=== PATIENT | female | born 1955 | race Caucasian/White ===

== ENCOUNTER 2018-03-17 10:18 | Observation (INO) | payer BC ==
[2018-03-17 10:34] VITALS: BMI 28.7
[2018-03-17] MEDS ORDERED: SODIUM CHLORIDE 1,000 ML IV ONE (10:44)
--- NOTE | 2018-03-17 10:50 | PDOC ---
History of Present Illness - General Chief Complaint: Pain Stated Complaint: ABDOMINAL PAIN Time Seen by Provider: 03/17/18 10:41 History Source: Patient Exam Limitations: No Limitations - History of Present Illness Travel History: No Initial Comments: 03/17/18 11:05 62y F hx of anxiety presents with abdoimnal pain and diarrhea. pt notes that she has been having frequent bowel stool for the past month. pt notes that she has beenhaving yellowish diarrhea, she was started on flagyl originally with mild improvement of her symptoms but never resolved completely. symptoms worsened again, pt went to PMDs office and received a CT abd as an outpatient showing diffuse colitis. Pt was referred to the ED as she is still having frequent stools and abd pain. pt denies any recent travel (last travel was to [place] last jun). no associated fever/chills, n/v, cp, sob, palpitations , back pain, melena. Pt does not occasionaly spotting in her toilet paper when wiping bu tno bloody stool or black stool. pt was started on levaquin yesterday, last dose was this morning. Past History - Past Medical History Allergies/Adverse Reactions: Allergies Allergy/AdvReac Type Severity Reaction Status Date / Time No Known Allergies Allergy Verified 03/17/18 10:30 COPD: No GI Disorders: Yes (COLITIS) Psychiatric Problems: Yes (ANXEITY) - Suicide/Smoking/Psychosocial Hx Smoking History: Current every day smoker Have you smoked in the past 12 months: Yes Number of Cigarettes Smoked Daily: 10 Information on smoking cessation initiated: Yes 'Breaking Loose' booklet given: 03/17/18 Hx Alcohol Use: No Drug/Substance Use Hx: No Substance Use Type: None Review of Systems - Review of Systems Able to Perform ROS?: Yes Comments:: 03/17/18 11:12 Constitutional - no reported Fever, Chills, HEENT: no reported vision changes, sore throat Respiratory: no reported cough, sob, hemoptysis Cardiac: no reported chest pain, palpitations, light headedness, leg swelling Abd/GI: +abd pain, diarrhea no reported nausea, vomiting, blood per rectum, melena : no reported dysuria, frequency, discharge Musculskelatal - no reported back pain, joint swelling skin - no reported bruising, erythema, rash neurological: no reported headache, numbness, focal weakness, tingling, ataxia, hematologic: no reported easy bruising, easy bleeding *Physical Exam - Vital Signs Last Vital Signs Temp Pulse Resp BP Pulse Ox 97.5 F L 127 H 18 90/66 100 03/17/18 10:31 03/17/18 10:31 03/17/18 10:31 03/17/18 10:31 03/17/18 10:31 - Physical Exam Comments: 03/17/18 11:13 GENERAL: The patient is awake, alert, and fully oriented, Nontoxic - in no acute distress. HEAD: Normocephalic, atraumatic. EYES: extraocular movements intact, sclera anicteric, conjunctiva clear. ENT: Normal voice, Moist mucous membranes. NECK: Normal range of motion, supple LUNGS: Breath sounds equal, clear to auscultation bilaterally. No wheezes, no rhonchi, no rales. HEART: tachycardic, normal S1 and S2 without murmur, rub or gallop. ABDOMEN: mild diffuse tenderness, no rebound/guarding, EXTREMITIES: Normal range of motion, no edema. No clubbing or cyanosis. No cords, erythema, or tenderness. NEUROLOGICAL: No facial assymetry, Normal speech, PSYCH: Normal mood, normal affect. SKIN: Warm, Dry, normal turgor, Heart Score/ECG Review - ECG Impressions Comment:: 03/17/18 13:55 Twelve-lead EKG was performed and reviewed by me. There is normal sinus rhythm with rate of 107 nonspecific t wave chnages ED Treatment Course - LABORATORY CBC & Chemistry Diagram: 03/17/18 11:40 03/17/18 11:40 - RADIOLOGY Radiology Studies Ordered: Category Date Time Status CHEST X-RAY PORTABLE* [RAD] Stat Radiology 03/17/18 10:44 Ordered Medical Decision Making - Medical Decision Making 03/17/18 11:13 62y F presents with complaint of diarrhea, colitis on outpatietn CT yesterday presents with persitent diarrhea, noted to be tachy to 127 at triage. abd soft, but mild diffuse tendrness supect tachy due to dehydration, posisble metabolic derangement fluid resusitation ekg to screen for arrythmia pt had levaquin this AM, will add flagyl will obtain stool cultures, o&p, cdiff anticiapate admission for further magnement 03/17/18 13:[address] angeles calderon with obs pts wbc noted to be 23, and pancolitis on CT [place] high suspicion for cdiff will give po vanc Case discussed in detail with admitting physician including history, physical exam and ancillary studies. Admitting physician has assumed care for the patient, will follow all pending diagnostics and will complete the evaluation and treatment. *DC/Admit/Observation/Transfer Diagnosis at time of Disposition: Pancolitis, Clostridium difficile colitis - Discharge Dispostion Condition at time of disposition: Stable Decision to Admit order: Yes - Referrals - Patient Instructions - Post Discharge Activity
[2018-03-17 12:10] LABS: BASO % 0.1 % (0-2.0); EOS % 0.1 % (0-4.5); HEMATOCRIT 42.1 % (32.4-45.2); HEMOGLOBIN 13.7 GM/dL (10.7-15.3); LYMPH % 3.8 % (8-40); MCH 27.8 pg (25.7-33.7); MCHC 32.5 g/dl (32.0-36.0); MEAN CELL VOLUME 85.5 fl (80-96); MEAN PLT VOLUME 8.6 fl (7.5-11.1); MONO % 7.9 % (3.8-10.2); NEUT % 88.1 % (42.8-82.8); PLATELET COUNT 369 K/MM3 (134-434); RBC 4.93 M/mm3 (3.60-5.2); WHITE BLOOD COUNT 23.4 K/mm3 (4.0-10.0)
[2018-03-17 12:48] LABS: ALBUMIN 2.6 g/dl (3.4-5.0); ALK PHOS 108 U/L (45-117); ANION GAP 9 (8-16); BILIRUBIN,TOTAL 0.7 mg/dL (0.2-1.0); BLOOD UREA NITROGEN 13 mg/dL (7-18); CALCIUM 8.5 mg/dL (8.5-10.1); CHLORIDE 94 mmol/L (98-107); CO2 28 mmol/L (21-32); CREATININE 1.2 mg/dL (0.55-1.02); GLUCOSE,RANDOM 111 mg/dL (74-106); POTASSIUM 3.9 mmol/L (3.5-5.1); SGOT/AST 12 U/L (15-37); SGPT/ALT 22 U/L (12-78); SODIUM 131 mmol/L (136-145)
[2018-03-17 13:02] LABS: PLATELET ESTIMATE NORMAL
[2018-03-17 14:20] LABS: URINE APPEARANCE CLOUDY; URINE COLOR AMBER; URINE GLUCOSE (UA) 1+ (NEGATIVE); URINE KETONE NEGATIVE (NEGATIVE); URINE LEUK ESTERASE NEGATIVE (NEGATIVE); URINE NITRITE NEGATIVE (NEGATIVE); URINE UROBILINOGEN NEGATIVE mg/dL (0.2-1.0)
[2018-03-17 14:21] LABS: URINE PROTEIN 2+ (NEGATIVE)
[2018-03-17 14:24] LABS: EPI CELLS MODERATE /HPF (FEW); GRANULAR CASTS 33 /lpf; URINE HYALINE CAST 78 /lpf; URINE MUCUS MANY
[2018-03-17] MEDS ORDERED: ACETAMINOPHEN 325 MG TABLET (FP) PO PRN (15:16)
[2018-03-17] MEDS ORDERED: ONDANSETRON 4 MG/2 ML VIAL IVPUSH PRN (15:16)
--- NOTE | 2018-03-17 15:19 | HP ---
Admitting History and Physical - Primary Care Physician PCP: Yaron Koch - Admission Chief Complaint: I have diarrhea History of Present Illness: Mrs Patel is a very anxious 62 year old female who was sent in for colitis. 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 About 1 month ago she started to develop diarrhea. It is off and on but more fluctuates between no bowel movement and yellow liquid diarrhea. She says there was no josseline blood or melena but there were streaks on the tissue. She also had diffuse abdominal pain associated with it. The pain was crampy in nature and constant. It did not affect her appetite except for the fact that the diarrhea made her anxious so she would not eat. She was on flagyl earlier this month and it improved slightly , but when it finished it worsened again. She was seen by Dr Koch and placed on levaquin and underwent a CT scan. The CT scan showed diffuse colitis and she came in for further evaluation. She denies fevers, chills, lightheadedness, dizziness, passing out, chest pain or pressure, shortness of breath, nausea, vomiting, difficulty or pain on urination, or swelling. She is acutely anxious because she says her mother had diverticulitis and colitis and of sepsis. History Source: Patient Limitations to Obtaining History: No Limitations - Past Medical History Psych: Yes: Anxiety - Past Surgical History Past Surgical History: Yes: Cataract Removal - Smoking History Smoking history: Current every day smoker Have you smoked in the past 12 months: Yes Aproximately how many cigarettes per day: 10 - Alcohol/Substance Use Hx Alcohol Use: No History of Substance Use: reports: None - Social History Usual Living Arrangement: Yes: With Spouse ADL: Independent History of Recent Travel: No Home Medications - Allergies Allergies/Adverse Reactions: Allergies Allergy/AdvReac Type Severity Reaction Status Date / Time No Known Allergies Allergy Verified 03/17/18 10:30 - Home Medications Home Medications: Ambulatory Orders Levofloxacin [Levaquin] 500 mg PO DAILY 03/17/18 Paroxetine HCl [Paxil] 10 mg PO DAILY 03/17/18 Family Disease History - Family Disease History Family Disease History: Heart Disease: Father, Other: Mother (diverticulitis) Other Family History: paternal aunts: breast cancer Review of Systems Findings/Remarks: Full review of systems obtained, as per HPI and otherwise negative. Physical Examination Vital Signs: Vital Signs Temperature 36.4 C L 03/17/18 10:31 Pulse Rate 94 H 03/17/18 14:31 Respiratory Rate 18 03/17/18 10:31 Blood Pressure 108/72 03/17/18 14:31 O2 Sat by Pulse Oximetry (%) 99 03/17/18 14:31 Constitutional: Yes: Well Nourished, Anxious Eyes: Yes: Conjunctiva Clear, EOM Intact, PERRL HENT: Yes: Atraumatic, Normocephalic Cardiovascular: Yes: Regular Rate and Rhythm. No: Gallop, Murmur, Rub Respiratory: Yes: Regular, CTA Bilaterally. No: Rales, Rhonchi, Wheezes Gastrointestinal: Yes: Normal Bowel Sounds, Soft, Tenderness (slight). No: Distention Extremities: Yes: WNL Edema: No Labs: CBC, BMP 03/17/18 11:40 03/17/18 11:40 Imaging - Results Cat Scan: Report Reviewed (from 03/16) Problem List - Problems (1) Clostridium difficile colitis Assessment/Plan: -patient with diarrhea x1 month, pancolitis on CT scan, and leukocytosis on 23K -c diff positive -admit under observation -start vancomycin 125mg q6h -consult GI -monitor for improvement -suspect will not need long hospital stay as patient able to take po without difficulty Code(s): A04.72 - ENTEROCOLITIS D/T CLOSTRIDIUM DIFFICILE, NOT SPCF RECUR (2) Dehydration Assessment/Plan: -secondary to diarrhea -IVF x 24h -encourage po intake, patient anxious and does not want to eat or drink as concerned will exacerbate diarrhea Code(s): E86.0 - DEHYDRATION (3) Anxiety Assessment/Plan: -continue paxil -will order prn xanax while in the hospital as is very anxious -reassured Code(s): F41.9 - ANXIETY DISORDER, UNSPECIFIED Assessment/Plan Dispo -possible discharge tomorrow after hydration
[2018-03-17] MEDS ORDERED: ALPRAZolam 0.25 MG TABLET PO PRN (15:26)
[2018-03-17] MEDS: SODIUM CHLORIDE 1,000 ML IV SCH (15:50)
[2018-03-17] MEDS: PARoxetine HCL 10 MG TABLET (FP) PO SCH (15:53)
--- NOTE | 2018-03-17 17:47 | CON.GI ---
Consult Consult Specialty:: Gastroenterology Referred by:: Dr Banda Reason for Consultation:: Diarrhea - History of Present Illness Chief Complaint: Diarrhea History of Present Illness: 62F has had diarrhea for the past 4 weeks. She was treated with Flagyl which appeared to have controlled it when she completed the course a week ago. She flared 2 days ago leading to a CT scan yesterday that reveals pancolitis. No foreign travel or antibiotic exposure prior to the onset. 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 She has never had a colonoscopy and denies a FH of colon cancer. NO previous GI problems but was started on a PPI and Levaquin this week for gastric upset. She has had 4 loose BMs today and notes bleeding and perianal irritation from wiping. She has been taking a probiotic. She is C diff toxin positive - History Source History Provided By: Patient Limitations to Obtaining History: No Limitations - Past Medical History Psych: Yes: Anxiety - Past Surgical History Past Surgical History: Yes: Cataract Removal, Tonsillectomy Additional Surgical History: right knee fracture surgery as a child - Alcohol/Substance Use Hx Alcohol Use: No History of Substance Use: reports: None - Smoking History Smoking history: Current every day smoker Have you smoked in the past 12 months: Yes Aproximately how many cigarettes per day: 10 - Social History Usual Living Arrangement: With Spouse ADL: Independent 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 Place of : [facility] History of Recent Travel: No Home Medications - Allergies Allergies/Adverse Reactions: Allergies Allergy/AdvReac Type Severity Reaction Status Date / Time No Known Allergies Allergy Verified 03/17/18 10:30 - Home Medications Home Medications: Ambulatory Orders Levofloxacin [Levaquin] 500 mg PO DAILY 03/17/18 Paroxetine HCl [Paxil] 10 mg PO DAILY 03/17/18 Family Disease History - Family Disease History Family Disease History: Heart Disease: Father ( 73 of [place]), Other: Mother ( diverticulitis, was alcoholic) Other Family History: paternal aunts: breast cancer, pat GF had pancreatic cancer Review of Systems - Review of Systems Constitutional: reports: Lethargy, Loss of Appetite, Weakness Eyes: reports: No Symptoms HENT: reports: No Symptoms Neck: reports: No Symptoms Cardiovascular: reports: No Symptoms Respiratory: reports: No Symptoms Gastrointestinal: reports: Abdominal Pain, Diarrhea, Rectal Bleeding Genitourinary: reports: No Symptoms Neurological: reports: No Symptoms Psychiatric: reports: Anxiety Physical Exam-GI Vital Signs: Vital Signs Temperature 99.6 F 03/17/18 17:03 Pulse Rate 102 H 03/17/18 17:03 Respiratory Rate 20 03/17/18 17:03 Blood Pressure 126/65 03/17/18 17:03 O2 Sat by Pulse Oximetry (%) 99 03/17/18 14:31 CBC,CMP WBC 23.4 K/mm3 (4.0-10.0) H 03/17/18 11:40 RBC 4.93 M/mm3 (3.60-5.2) 03/17/18 11:40 Hgb 13.7 GM/dL (10.7-15.3) 03/17/18 11:40 Hct 42.1 % (32.4-45.2) 03/17/18 11:40 MCV 85.5 fl (80-96) 03/17/18 11:40 MCH 27.8 pg (25.7-33.7) 03/17/18 11:40 MCHC 32.5 g/dl (32.0-36.0) 03/17/18 11:40 RDW 14.0 % (11.6-15.6) 03/17/18 11:40 Plt Count 369 K/MM3 (134-434) 03/17/18 11:40 MPV 8.6 fl (7.5-11.1) 03/17/18 11:40 Neutrophils % 88.1 % (42.8-82.8) H 03/17/18 11:40 Neutrophils % (Manual) 90.0 % (42.8-82.8) H 03/17/18 11:40 Band Neutrophils % 1.0 % 03/17/18 11:40 Lymphocytes % 3.8 % (8-40) L 03/17/18 11:40 Lymphocytes % (Manual) 2.0 % (8-40) L 03/17/18 11:40 Monocytes % 7.9 % (3.8-10.2) 03/17/18 11:40 Monocytes % (Manual) 7 % (3.8-10.2) 03/17/18 11:40 Eosinophils % 0.1 % (0-4.5) 03/17/18 11:40 Eosinophils % (Manual) 0.0 % (0-4.5) 03/17/18 11:40 Basophils % 0.1 % (0-2.0) 03/17/18 11:40 Basophils % (Manual) 0.0 % (0-2.0) 03/17/18 11:40 Myelocytes % (Man) 0 % (0-2) 03/17/18 11:40 Promyelocytes % (Man) 0 % (0-2) 03/17/18 11:40 Blast Cells % (Manual) 0 % (0-0) 03/17/18 11:40 Nucleated RBC % 0 % (0-0) 03/17/18 11:40 Metamyelocytes 0 % (0-2) 03/17/18 11:40 Platelet Estimate Normal 03/17/18 11:40 Sodium 131 mmol/L (136-145) L 03/17/18 11:40 Potassium 3.9 mmol/L (3.5-5.1) 03/17/18 11:40 Chloride 94 mmol/L (98-107) L 03/17/18 11:40 Carbon Dioxide 28 mmol/L (21-32) 03/17/18 11:40 Anion Gap 9 (8-16) 03/17/18 11:40 BUN 13 mg/dL (7-18) 03/17/18 11:40 Creatinine 1.2 mg/dL (0.55-1.02) H 03/17/18 11:40 Creat Clearance w eGFR 45.23 (>60) 03/17/18 11:40 Random Glucose 111 mg/dL (74-106) H 03/17/18 11:40 Lactic Acid 1.8 mmol/L (0.0-2.0) 03/17/18 11:40 Calcium 8.5 mg/dL (8.5-10.1) 03/17/18 11:40 Total Bilirubin 0.7 mg/dL (0.2-1.0) 03/17/18 11:40 AST 12 U/L (15-37) L 03/17/18 11:40 ALT 22 U/L (12-78) 03/17/18 11:40 Alkaline Phosphatase 108 U/L (45-117) 03/17/18 11:40 Total Protein 6.0 g/dl (6.4-8.2) L 03/17/18 11:40 Albumin 2.6 g/dl (3.4-5.0) L 03/17/18 11:40 Current Medications Generic Name Dose Route Start Last Admin Trade Name Freq PRN Reason Stop Dose Admin Acetaminophen 650 mg 03/17/18 15:16 Tylenol - PO Q4H PRN PAIN LEVEL 1-5 Alprazolam 0.25 mg 03/17/18 15:26 Xanax - PO Q8H PRN ANXIETY Sodium Chloride 1,000 mls @ 100 mls/hr 03/17/18 15:30 03/17/18 15:50 Normal Saline - IV 100 mls/hr ASDIR DANTE Administration Ondansetron HCl 4 mg 03/17/18 15:16 03/17/18 15:45 Zofran Injection IVPUSH 4 mg Q6H PRN Administration NAUSEA Paroxetine HCl 10 mg 03/17/18 15:30 03/17/18 15:53 Paxil - PO Not Given DAILY DANTE Vancomycin HCl 125 mg 03/17/18 15:18 Vancomycin Oral Solution PO Q6HPO DANTE Labs: CBC, BMP 03/17/18 11:40 03/17/18 11:40 Imaging - Results Cat Scan: Report Reviewed (Joi Farr Name: [facility] DEPARTMENT OF RADIOLOGY Phys: Yaron Koch MD : [id number] Age: 62 Sex: F [facility] Acct: [id number] Loc: [facility] [address] [facility] Exam Date: 03/16/18 Status: REG REF SARAH Galar[place] [address] Unit Number: [id number] EXAM#: TYPE/EXAM: RESULT: [id number] CT/ABDOMEN PELVIS CT WITH CONTR HISTORY PROVIDED: Abdominal pain. Sequential axial images were obtained from the domes of the diaphragms through the symphysis pubis following the administration of intravenous contrast material. The lung bases are clear. The liver, spleen, pancreas , adrenal glands and kidneys demonstrate no significant abnormalities. There is a small cyst within the dome of the liver. There is also a 6.6 x 6.0 x 7.2 cm cyst within the upper pole of the left kidney. The gallbladder is clear. There is no evidence of intra-abdominal or retroperitoneal lymphadenopathy or fluid collections. There is extensive thickening and irregularity of the entire colon with pericolonic inflammatory changes. This appearance is consistent with pancolitis. The rectum appears to be involved and therefore ulcerative colitis is suspected. Clinical correlation and follow-up colonoscopy is advised. The terminal ileum does not appear to be involved and therefore Crohn's disease is less likely. There is no evidence of pneumoperitoneum, bowel obstruction or intra-abdominal abscess. There is no CT evidence of acute appendicitis or diverticulitis. Examination of the pelvis demonstrates no evidence of pelvic masses, fluid collections or lymphadenopathy. There is a trace amount of free fluid within the right hemipelvis. IMPRESSION: Findings consistent with extensive pancolitis. Clinical correlation and follow-up recommended. Please see above discussion. Reported By: Rafael Garvey MD 03/16/18 1443 Yaron Koch Technologist: Kodi Lawton Transcribed Date/Time: 03/16/181442 Quality Assurance Calibrator: Rafael Garvey Printed Date/Time: By: Signed by: Rafael Garvey Signed on: 16-Mar-2018 14:44) Problem List - Problems (1) Clostridium difficile colitis Assessment/Plan: The picture with significant leucocytosis and electrolyte imbalance and dehydration is entirely consistent with C doff colitis. Her bleeding appears to be hemorrhoidal in origin. Agree with the need for Vancomycin and IV and electrolyte repletion. Would keep diet lactose free and continue probiotic. Dr Fleming will be covering this weekend. Please call him as needed. I have advised followup in our office to arrange a colon cancer screening colonoscopy after she recovers. Code(s): A04.72 - ENTEROCOLITIS D/T CLOSTRIDIUM DIFFICILE, NOT SPCF RECUR (2) Pancolitis Code(s): K51.00 - ULCERATIVE (CHRONIC) PANCOLITIS WITHOUT COMPLICATIONS
[2018-03-17] MEDS ORDERED: VANCOMYCIN 250 MG/5 ML ORAL SOLUTION PO SCH (18:00)
[2018-03-17] MEDS: VANCOMYCIN 250 MG/5 ML ORAL SOLUTION PO SCH ×2 (18:03→23:26)
[2018-03-18] MEDS: VANCOMYCIN 250 MG/5 ML ORAL SOLUTION PO SCH ×3 (05:16→17:42)
[2018-03-18 08:20] LABS: BASO % 0.2 % (0-2.0); EOS % 0.4 % (0-4.5); HEMATOCRIT 35.8 % (32.4-45.2); HEMOGLOBIN 11.8 GM/dL (10.7-15.3); LYMPH % 5.8 % (8-40); MCH 28.3 pg (25.7-33.7); MCHC 33.1 g/dl (32.0-36.0); MEAN CELL VOLUME 85.5 fl (80-96); MEAN PLT VOLUME 8.5 fl (7.5-11.1); MONO % 9.2 % (3.8-10.2); NEUT % 84.4 % (42.8-82.8); PLATELET COUNT 320 K/MM3 (134-434); RBC 4.19 M/mm3 (3.60-5.2); RDW 13.7 % (11.6-15.6); WHITE BLOOD COUNT 21.4 K/mm3 (4.0-10.0)
[2018-03-18 08:21] LABS: CHLORIDE 101 mmol/L (98-107); POTASSIUM 3.6 mmol/L (3.5-5.1); SODIUM 134 mmol/L (136-145)
[2018-03-18 08:40] LABS: ANION GAP 11 (8-16); BLOOD UREA NITROGEN 12 mg/dL (7-18); CO2 22 mmol/L (21-32); CREATININE 0.7 mg/dL (0.55-1.02); GLUCOSE,RANDOM 94 mg/dL (74-106); MAGNESIUM 2.1 mg/dL (1.8-2.4); PHOSPHOROUS 3.4 mg/dL (2.5-4.9)
[2018-03-18] MEDS ORDERED: PT OWN MED DRAWER 7, Y5N ONE ×2 (09:51→12:01)
[2018-03-18] MEDS: PARoxetine HCL 10 MG TABLET (FP) PO SCH (09:56)
[2018-03-18] MEDS: LACTOBACILLUS ACIDOPHILUS 1 TABLET PO SCH (09:56)
[2018-03-18 10:27] LABS: CALCIUM 7.8 mg/dL (8.5-10.1)
--- NOTE | 2018-03-18 11:22 | PN ---
Progress Note, Physician Chief Complaint: Diarrhea is improving more solid now - Current Medication List Current Medications: Active Medications Acetaminophen (Tylenol -) 650 mg PO Q4H PRN PRN Reason: PAIN LEVEL 1-5 Alprazolam (Xanax -) 0.25 mg PO Q8H PRN PRN Reason: ANXIETY Last Admin: 03/17/18 23:29 Dose: 0.25 mg Sodium Chloride (Normal Saline -) 1,000 mls @ 100 mls/hr IV ASDIR [facility] Last Admin: 03/17/18 15:50 Dose: 100 mls/hr Lactobacillus Acidophilus (Bacid -) 1 tab PO DAILY [facility] Last Admin: 03/18/18 09:56 Dose: 1 tab Ondansetron HCl (Zofran Injection) 4 mg IVPUSH Q6H PRN PRN Reason: NAUSEA Last Admin: 03/17/18 15:45 Dose: 4 mg Paroxetine HCl (Paxil -) 10 mg PO DAILY [facility] Last Admin: 03/18/18 09:56 Dose: 10 mg Vancomycin HCl (Vancomycin Oral Solution) 125 mg PO Q6HPO [facility] Last Admin: 03/18/18 05:16 Dose: 125 mg - Objective Vital Signs: Vital Signs Temperature 98.6 F 03/18/18 05:57 Pulse Rate 93 H 03/18/18 05:57 Respiratory Rate 20 03/18/18 05:57 Blood Pressure 112/66 03/18/18 05:57 O2 Sat by Pulse Oximetry (%) 96 03/17/18 23:16 HEENT; Mm moist no anemia NECK: no JVD no Bruit CHEST: CTA B/L CVS; S1S2 R no m/g/r ABD: Diffuse tenderness Bs + EXT: No edema feet 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
[2018-03-18] MEDS: SODIUM CHLORIDE 1,000 ML IV SCH ×2 (14:15→18:45)
[2018-03-18] MEDS: MAGNESIUM SULFATE 16 OZ CRYSTALS TP PRN (18:00)
[2018-03-19] MEDS: VANCOMYCIN 250 MG/5 ML ORAL SOLUTION PO SCH ×4 (00:08→17:34)
[2018-03-19] MEDS: SODIUM CHLORIDE 1,000 ML IV SCH ×3 (01:01→17:35)
[2018-03-19 08:48] LABS: BASO % 0.1 % (0-2.0); EOS % 0.4 % (0-4.5); HEMOGLOBIN 11.7 GM/dL (10.7-15.3); MCH 28.5 pg (25.7-33.7); MCHC 33.4 g/dl (32.0-36.0); MEAN CELL VOLUME 85.4 fl (80-96); MEAN PLT VOLUME 8.3 fl (7.5-11.1); MONO % 8.9 % (3.8-10.2); NEUT % 83.6 % (42.8-82.8); PLATELET COUNT 375 K/MM3 (134-434); RBC 4.09 M/mm3 (3.60-5.2); RDW 14.2 % (11.6-15.6); WHITE BLOOD COUNT 19.4 K/mm3 (4.0-10.0)
[2018-03-19 09:11] LABS: CHLORIDE 104 mmol/L (98-107); POTASSIUM 3.9 mmol/L (3.5-5.1); SODIUM 136 mmol/L (136-145)
[2018-03-19 09:17] LABS: ANION GAP 10 (8-16); BLOOD UREA NITROGEN 10 mg/dL (7-18); CALCIUM 7.3 mg/dL (8.5-10.1); CO2 22 mmol/L (21-32); CREATININE 0.7 mg/dL (0.55-1.02); GLUCOSE,RANDOM 90 mg/dL (74-106)
[2018-03-19] MEDS ORDERED: PT OWN MED DRAWER 7, Y5N ONE (09:42)
[2018-03-19] MEDS: PARoxetine HCL 10 MG TABLET (FP) PO SCH (09:48)
[2018-03-19] MEDS: LACTOBACILLUS ACIDOPHILUS 1 TABLET PO SCH (09:48)
--- NOTE | 2018-03-19 12:38 | PN ---
Progress Note, Physician Chief Complaint: Diarrhea is improving more solid now - Current Medication List Current Medications: Active Medications Acetaminophen (Tylenol -) 650 mg PO Q4H PRN PRN Reason: PAIN LEVEL 1-5 Alprazolam (Xanax -) 0.25 mg PO Q8H PRN PRN Reason: ANXIETY Last Admin: 03/17/18 23:29 Dose: 0.25 mg Sodium Chloride (Normal Saline -) 1,000 mls @ 100 mls/hr IV ASDIR [facility] Last Admin: 03/19/18 11:01 Dose: 100 mls/hr Lactobacillus Acidophilus (Bacid -) 1 tab PO DAILY [facility] Last Admin: 03/19/18 09:48 Dose: 1 tab Magnesium Sulfate (Epsom Salt -) 1 applic TP PRN PRN PRN Reason: AFTER DEFECATION Last Admin: 03/18/18 18:00 Dose: 1 applic Ondansetron HCl (Zofran Injection) 4 mg IVPUSH Q6H PRN PRN Reason: NAUSEA Last Admin: 03/17/18 15:45 Dose: 4 mg Paroxetine HCl (Paxil -) 10 mg PO DAILY [facility] Last Admin: 03/19/18 09:48 Dose: 10 mg Vancomycin HCl (Vancomycin Oral Solution) 125 mg PO Q6HPO [facility] Last Admin: 03/19/18 11:38 Dose: 125 mg - Objective Vital Signs: Vital Signs Temperature 98.4 F 03/19/18 08:25 Pulse Rate 88 03/19/18 08:25 Respiratory Rate 18 03/19/18 08:25 Blood Pressure 117/44 03/19/18 08:25 O2 Sat by Pulse Oximetry (%) 98 03/18/18 21:00 HEENT; Mm moist no anemia NECK: no JVD no Bruit CHEST: CTA B/L CVS; S1S2 R no m/g/r ABD: Diffuse tenderness Bs + EXT: No edema 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
[2018-03-19] MEDS: MAGNESIUM SULFATE 16 OZ CRYSTALS TP PRN (14:18)
--- NOTE | 2018-03-19 22:27 | EKG ---
Test Reason : Blood Pressure : / mmHG Vent. Rate : 107 BPM Atrial Rate : 107 BPM P-R Int : 132 ms QRS Dur : 074 ms QT Int : 364 ms P-R-T Axes : 024 031 047 degrees QTc Int : 485 ms SINUS TACHYCARDIA NONSPECIFIC T WAVE ABNORMALITY ABNORMAL ECG NO PREVIOUS ECGS AVAILABLE Confirmed by JANET CLARK MD ([id number]) on 03/19/2018 10:26:59 PM Referred By: Confirmed By:JANET CLARK MD
[2018-03-20] MEDS: VANCOMYCIN 250 MG/5 ML ORAL SOLUTION PO SCH ×3 (00:25→13:24)
[2018-03-20 08:26] LABS: BASO % 0.2 % (0-2.0); EOS % 0.8 % (0-4.5); HEMATOCRIT 36.8 % (32.4-45.2); LYMPH % 9.4 % (8-40); MCH 27.9 pg (25.7-33.7); MCHC 32.7 g/dl (32.0-36.0); MEAN CELL VOLUME 85.2 fl (80-96); MEAN PLT VOLUME 7.9 fl (7.5-11.1); MONO % 8.4 % (3.8-10.2); NEUT % 81.2 % (42.8-82.8); PLATELET COUNT 434 K/MM3 (134-434); RBC 4.32 M/mm3 (3.60-5.2); RDW 14.1 % (11.6-15.6)
[2018-03-20 09:03] LABS: ANION GAP 8 (8-16); BLOOD UREA NITROGEN 9 mg/dL (7-18); CALCIUM 7.6 mg/dL (8.5-10.1); CHLORIDE 104 mmol/L (98-107); CO2 24 mmol/L (21-32); CREATININE 0.7 mg/dL (0.55-1.02); GLUCOSE,RANDOM 87 mg/dL (74-106); POTASSIUM 3.8 mmol/L (3.5-5.1); SODIUM 136 mmol/L (136-145)
[2018-03-20] MEDS ORDERED: PT OWN MED DRAWER 7, Y5N ONE ×2 (09:50→12:51)
[2018-03-20] MEDS: LACTOBACILLUS ACIDOPHILUS 1 TABLET PO SCH (09:59)
[2018-03-20] MEDS: PARoxetine HCL 10 MG TABLET (FP) PO SCH (09:59)
[2018-03-20 12:31] VITALS: BP 128/73; PULSE 95; TEMP 98.4
--- NOTE | 2018-03-20 12:42 | DS ---
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 Cardiovascular: Yes: Bruit Labs: CBC, BMP 03/20/18 07:42 03/20/18 07:42 Stool C Diff : (+ ) Ag and Toxin Discharge Summary Reason For Visit: ULCERATIVE PANCOLITIS Current Active Problems Anxiety (Acute) Clostridium difficile colitis (Acute) Dehydration (Acute) Pancolitis (Acute) Hospital Course: 62 year old female 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 Patient took a short course of Flagyl with Partial improvement, but when it finished it worsened again. TWBC elevated, CT scan showed diffuse colitis, Stool C Diff +, patient is improving on Po Vancomycin recomonded by GI consult. frequency of diarrhea and stool reduced and stool consistency improved, abdominal pain also improved, no c/o nausea, vomiting tolerating PO, TWBC is still elevated but gradually trending normal, no Left shift. Condition: Stable - Instructions Diet, Activity, Other Instructions: resume prev diet, activity avoid dairy products for now maintain hydration with liquids CONTAGIOUS UNTIL COMPLETION OF TREATMENT F/U as directed take probiotics Referrals: Shawna Tony MD [Staff Physician] - 2 Weeks Yaron Koch MD [Staff Physician] - 1 Week Disposition: HOME - Home Medications Comprehensive Discharge Medication List: Ambulatory Orders Paroxetine HCl [Paxil] 10 mg PO DAILY 03/17/18 Lactobacillus Acidophilus [Bacid -] 1 tab PO DAILY 11 Days #11 tab 03/20/18 Nystatin Oral Suspension - [Nystatin Oral Susp 141942 Units/5 ML -] 500,000 units PO Q6H 7 Days #28 cup 03/20/18 Vancomycin Oral Solution 125 mg PO Q6HPO 11 Days #44 ml 03/20/18
--- NOTE | 2018-03-20 21:00 | PN ---
Progress Note, Physician History of Present Illness: Pt lying in bed in no acute distress. reports she is feeling better, able to tolerate po. stools more formed and less frequent - Objective Vital Signs: Vital Signs Temperature 98.4 F 03/20/18 10:00 Pulse Rate 95 H 03/20/18 10:00 Respiratory Rate 20 03/20/18 10:00 Blood Pressure 128/73 03/20/18 10:00 O2 Sat by Pulse Oximetry (%) 96 03/20/18 09:00 Constitutional: Yes: Well Nourished, No Distress, Calm HENT: Yes: Thrush Cardiovascular: Yes: WNL, Regular Rate and Rhythm Respiratory: Yes: WNL, Regular, CTA Bilaterally Gastrointestinal: Yes: Normal Bowel Sounds, Soft. No: Distention, Melena, Tenderness Edema: No Neurological: Yes: WNL, Alert, Oriented ...Motor Strength: WNL Psychiatric: Yes: WNL, Alert, Oriented Labs: CBC, BMP 03/20/18 07:42 03/20/18 07:42 Assessment/Plan Pt assessed and evaluated. Pt doing well, tolerating diet and po vanco. reports bms are more formed and less frequent since admission. WBCs slowly trending down , elevated in the setting of cdiff, however pt not toxic looking. Can finish antibiotic course at home and f/u outpt with GI and PCP.
== END 2018-03-20 15:38 | disposition home or self-care (01) ==
LOC: JER 10:18 → JERBED 13:43 → J8W 15:58
PROVIDERS: ADMIT Internal Medicine; ATTEND Internal Medicine
PROC: 3E03329 Introduction of Other Anti-infective into Peripheral Vein, Percutaneous Approach (ICD-10-PCS; principal; 2018-03-17)
PROC: 3E033GC Introduction of Other Therapeutic Substance into Peripheral Vein, Percutaneous Approach (ICD-10-PCS; 2018-03-17)
PROC: 3E0337Z Introduction of Electrolytic and Water Balance Substance into Peripheral Vein, Percutaneous Approach (ICD-10-PCS; 2018-03-17)
DX: A04.72 Enterocolitis due to Clostridium difficile, not specified as recurrent (principal); K51.00 Ulcerative (chronic) pancolitis without complications; E86.0 Dehydration; F41.9 Anxiety disorder, unspecified; F17.200 Nicotine dependence, unspecified, uncomplicated
CPT/HCPCS: 36415; 71045-TC-FY; 80048; 80053; 81003; 81015; 83605; 83735; 84100; 85025; 86140; 87040; 87045; 87046; 87177; 87209; 87324; 87449; 93005; 93010; 99282-25; G0378; J7030

== ENCOUNTER 2024-01-19 15:20 | Emergency (ER) | payer BC ==
[2024-01-19 15:50] VITALS: BP 156/85; PULSE 98; RESP 16; TEMP 97.9; BMI 25.4
[2024-01-19] MEDS ORDERED: ACETAMINOPHEN 500 MG TABLET (FP) ONE (16:01)
[2024-01-19] MEDS: ACETAMINOPHEN 500 MG TABLET (FP) PO ONE (16:02)
== END 2024-01-19 18:15 | disposition home or self-care (01) ==
LOC: FER 15:20
DX: S52.501A Unspecified fracture of the lower end of right radius, initial encounter for closed fracture (principal); W01.0XXA Fall on same level from slipping, tripping and stumbling without subsequent striking against object, initial encounter; Y93.01 Activity, walking, marching and hiking
CPT/HCPCS: 73090-TC-RT-FY; 73110-TC-RT-FY; 73130-TC-RT-FY; 99284-25

== ENCOUNTER 2024-01-26 09:14 | Day surgery (SDC) | payer BC ==
[2024-01-23 11:06] VITALS: BMI 32.2
[2024-01-26] MEDS ORDERED: BUPIVACAINE HCL/PF 0.5% (5MG/ML) 10 ML VIAL ONE (09:40)
[2024-01-26] MEDS ORDERED: ONDANSETRON 4 MG/2 ML VIAL IVPUSH PRN (10:09)
[2024-01-26] MEDS ORDERED: oxyCODONE HCL 5 MG TABLET PO PRN (10:09)
[2024-01-26] MEDS ORDERED: LACTATED RINGERS SOLUTION 1,000 ML IV SCH (10:15)
[2024-01-26] MEDS ORDERED: MIDAZOLAM HCL 2 MG/2 ML SINGLE DOSE VIAL ONE (10:17)
[2024-01-26] MEDS ORDERED: PROPOFOL 20 ML ONE (11:24)
[2024-01-26 13:13] VITALS: TEMP 98.1
[2024-01-26 13:32] VITALS: PULSE 72; RESP 16
[2024-01-26 14:23] VITALS: BP 123/62
== END 2024-01-26 14:00 | disposition home or self-care (01) ==
LOC: FASU 09:14
PROVIDERS: ATTEND Orthopaedic Surgery Sports Medicine
PROC: 0PSH04Z Reposition Right Radius with Internal Fixation Device, Open Approach (ICD-10-PCS; principal; 2024-01-26 11:07)
DX: S52.501A Unspecified fracture of the lower end of right radius, initial encounter for closed fracture (principal); W18.30XA Fall on same level, unspecified, initial encounter; Y93.9 Activity, unspecified; Y92.9 Unspecified place or not applicable
CPT/HCPCS: 25609; C1713; 73110-TC-RT-FY; 94760